=== PATIENT | male | born 1985 | race Caucasian/White ===

== ENCOUNTER 2023-07-31 17:59 | Emergency (ER) | payer SELFPAY ==
[2023-07-31 18:15] LABS: BASOPHILS ABSOLUTE AUTO 0.04 K/uL (0.00-0.20); BASOPHILS PERCENT AUTO 0.5 % (0.0-1.0); EOSINOPHILS ABSOLUTE AUTO 0.26 K/uL (0.00-0.45); EOSINOPHILS PERCENT AUTO 3.3 % (0.0-6.0); HEMOGLOBIN 15.3 g/dL (14.0-18.0); IMMATURE GRAN ABSOLUTE AUTO 0.02 K/uL (0.00-0.05); IMMATURE GRAN PERCENT AUTO 0.3 % (0.0-0.4); LYMPHOCYTES ABSOLUTE AUTO 2.78 K/uL (1.00-4.80); LYMPHOCYTES PERCENT AUTO 35.1 % (24.0-44.0); MEAN CORPUSCULAR HGB CONC 34.8 g/dL (32.0-36.0); MEAN PLATELET VOLUME 9.4 fL (9.4-12.4); MONOCYTES ABSOLUTE AUTO 0.39 K/uL (0.00-0.80); MONOCYTES PERCENT AUTO 4.9 % (0.0-8.0); NEUTROPHILS ABSOLUTE AUTO 4.43 K/uL (1.80-7.70); NEUTROPHILS PERCENT AUTO 55.9 % (41.0-71.0); PLATELET COUNT,PLT 304 K/uL (150-400); RED BLOOD CELL COUNT 4.63 M/uL (4.52-5.90); WHITE BLOOD CELL COUNT,WBC 7.92 K/uL (3.9-11.3)
[2023-07-31] MEDS: Iopamidol 755 MG/ML 500 ML Multipack Bottle IVPUSH STA (18:27)
[2023-07-31 18:31] LABS: INR 1.05 (0.86-1.11)
[2023-07-31] MEDS: Sodium Chloride 0.9% 10 ML Syringe FLUSH PRN (18:39)
[2023-07-31] MEDS: Diphtheria,Pertussis(Acell),Tetanus Vaccine 0.5 ML Syringe IM ONE (18:40)
[2023-07-31] MEDS: Sodium Chloride 0.9% 2.5 ML Syringe FLUSH PRN (18:40)
[2023-07-31] MEDS: Bacitracin Oint 28.35 GM Tube TOP SCH (18:46)
[2023-07-31] MEDS: Bacitracin Oint 1 GM U/D Packet TOP ONE (18:47)
[2023-07-31] MEDS: Ibuprofen 800 MG Tab PO ONE (18:48)
[2023-07-31 18:51] LABS: A/G RATIO 1.2 (0.9-1.6); ALBUMIN 3.9 g/dL (3.4-5.0); BILIRUBIN TOTAL 0.4 mg/dL (0.2-1.0); CALCIUM 8.7 mg/dL (8.5-10.1); CARBON DIOXIDE,CO2 25.5 mmol/L (21.0-32.0); CREATININE 1.3 mg/dL (0.8-1.3); POTASSIUM,K 3.3 mmol/L (3.5-5.1); PROTEIN TOTAL,TP 7.2 g/dL (6.4-8.2)
[2023-07-31 18:53] LABS: LIPASE 57 U/L (16-77)
[2023-07-31 18:54] LABS: ETHANOL BLOOD MEDICAL < 3.0 mg/dL
[2023-07-31] MEDS: Bacitracin Oint 28.35 GM Tube TOP STA (19:02)
[2023-07-31] MEDS ORDERED: Bacitracin Oint 28.35 GM Tube TOP SCH (22:00)
== END 2023-07-31 20:20 | disposition home or self-care (01) ==
LOC: MW.ED 17:59
DX: S51.811A Laceration without foreign body of right forearm, initial encounter (principal); Z79.899 Other long term (current) drug therapy; Z23 Encounter for immunization; W26.8XXA Contact with other sharp object(s), not elsewhere classified, initial encounter
CPT/HCPCS: 36415; 71045; 71260; 74177; 80053; 80307; 83690; 84484; 85025; 85610; 85730; 86850; 86900; 86901; 90471; 90715; 99284; A9270; J3490; Q9967; 12001; 12002